=== PATIENT | female | born 1990 | race Caucasian/White ===

== ENCOUNTER 2016-12-24 17:42 | Outpatient (CLI) | payer SELFPAY | END 2016-12-24 17:43 | disposition EMS.NT | LOC: EMS 17:42 | PROVIDERS: ATTEND Surgery | DX: S51.012A Laceration without foreign body of left elbow, initial encounter (principal); V49.40XA Driver injured in collision with unspecified motor vehicles in traffic accident, initial encounter; Y92.413 State road as the place of occurrence of the external cause ==

== ENCOUNTER 2016-12-25 10:13 | Emergency (ER) | payer OTHER ==
[2016-12-25 10:23] VITALS: BP 96/69
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
== END 2016-12-25 12:26 | disposition home or self-care (01) ==
LOC: ED 10:13
DX: S29.011A Strain of muscle and tendon of front wall of thorax, initial encounter (principal); V53.6XXA Passenger in pick-up truck or van injured in collision with car, pick-up truck or van in traffic accident, initial encounter; Y92.488 Other paved roadways as the place of occurrence of the external cause
CPT/HCPCS: 99283